=== PATIENT | female | born 1975 | race African-American/Black ===

== ENCOUNTER 2021-10-23 17:19 | Emergency (ER) | payer MEDICAID, SELFPAY ==
[~2021-10-23] VITALS: Ht 167.6 cm; Wt 81.6 kg
--- NOTE | 2021-10-23 17:20 | NUR ---
Patient to ER bed TENT1 to gown for evaluation. Side rails up.
--- NOTE | 2021-10-23 17:25 | NUR ---
ER at bedside examining patient.
--- NOTE | 2021-10-23 17:30 | NUR ---
PT PRESENTS TO ED C/O COUGH AND CONGESTION. PT REPORTS PRODUCTIVE COUGH AND BODY ACHES. NO ACUTE RESP DISTRESS NOTED.
[2021-10-23] MEDS ORDERED: PROMETHAZINE HCL 25 MG TABLET PO ONE (18:00)
[2021-10-23] MEDS ORDERED: ALBUTEROL MDI INHALATION 8 GM INH INH ONE (18:00)
[2021-10-23] MEDS ORDERED: ACETAMINOPHEN 325 MG TABLET PO ONE (18:00)
--- NOTE | 2021-10-23 18:30 | NUR ---
PT TOLERATED MEDICATION WELL.
--- NOTE | 2021-10-23 18:45 | NUR ---
PT RECEIVING BREATHING TX.
[2021-10-23] MEDS ORDERED: IPRATROPIUM/ALBUTEROL SULFATE 3 ML AMPUL.NEB (DUONEB) INH ONE (19:00)
--- NOTE | 2021-10-23 19:09 | NUR ---
Assumed care of patient at change of shift. Introduced self to patient, positioned for comfort. Bed to low position sr up, continue to monitor. Patient resting quietly. No acute distress noted. Vital signs within normal range. Addendum: 10/23/21 at 1910 by [email or web address] RT at bedside for admin of breathing txt. Now c/o sinus headache. continue to monitor.
[2021-10-23 19:28] VITALS: BP_SYST 140
[2021-10-23] MEDS ORDERED: PHEDM120 PO (19:28)
[2021-10-23] MEDS ORDERED: PRED20TA PO (19:28)
[2021-10-23] MEDS ORDERED: ALBMDI INH (19:28)
[2021-10-23] MEDS ORDERED: IBUPROFEN 800 MG TABLET PO ONE (19:45)
[2021-10-23] MEDS ORDERED: GUAI-723 PO (19:49)
--- NOTE | 2021-10-23 20:04 | NUR ---
Patient given written and verbal discharge instructions and verbalizes understanding. ER MD discussed with patient the results and treatment provided. Patient in stable condition. ID arm band removed. Rx of prednisone, given. Patient educated on pain management and to follow up with PMD. Pain Scale 6. Opportunity for questions provided and answered. Medication side effect fact sheet provided.
== END 2021-10-23 20:04 | disposition home or self-care (01) ==
LOC: SED 17:19
DX: J45.901 Unspecified asthma with (acute) exacerbation (principal); J06.9 Acute upper respiratory infection, unspecified; R51.9 Headache, unspecified; Z79.899 Other long term (current) drug therapy; Z20.822 Contact with and (suspected) exposure to COVID-19
CPT/HCPCS: 71045; 86710; 87426; 94640; 99284; Q0169; 36415

== ENCOUNTER 2021-11-13 09:43 | Emergency (ER) | payer MEDICAID, SELFPAY ==
[~2021-11-13] VITALS: Ht 175.3 cm; Wt 70.8 kg
[~2021-11-13 09:43] MED LIST: ALBMDI INH; GUAI-723 PO; PHEDM120 PO; PRED20TA PO
--- NOTE | 2021-11-13 09:50 | NUR ---
Pt triaged and placed in waiting room.
[2021-11-13 09:56] VITALS: BP_SYST 137
--- NOTE | 2021-11-13 10:30 | NUR ---
Patient to ER bed 2 to gown for evaluation. Side rails up. Report given to SAI Delcid.
--- NOTE | 2021-11-13 10:33 | NUR ---
DR DAWSON AT BEDSIDE FOR EXAM
--- NOTE | 2021-11-13 10:38 | NUR ---
LAB AT BEDSIDE
[2021-11-13 10:51] LABS: BASOPHILS % (AUTO) 0.3 % (0.0-2.0); EOSINOPHILS # (AUTO) 0.2 K/uL (0.0-0.4); EOSINOPHILS % (AUTO) 2.1 % (0.0-4.0); HEMATOCRIT 40.1 % (36-48); HEMOGLOBIN 13.2 g/dL (12.0-16.0); LYMPHOCYTES # (AUTO) 2.5 K/uL (1.0-5.5); LYMPHOCYTES % (AUTO) 25.9 % (20.5-51.5); MEAN CORPUSCULAR HEMOGLOBIN 29 pg (27-31); MEAN CORPUSCULAR HGB CONC 33 % (32-36); MEAN CORPUSCULAR VOLUME 87 fL (79.0-98.0); MONOCYTES # (AUTO) 0.7 K/uL (0.0-1.0); MONOCYTES % (AUTO) 7.8 % (1.7-9.3); NEUTROPHILS # (AUTO) 6.1 K/uL (1.8-7.7); NEUTROPHILS % (AUTO) 63.9 % (40.0-70.0); PLATELET COUNT (AUTO) 330 K/uL (130-430); RED CELL DISTRIBUTION WIDTH 15.4 % (9.0-15.0); WHITE BLOOD COUNT (AUTO) 9.5 K/uL (4.8-10.8)
[2021-11-13 10:57] LABS: CALCIUM 7.9 mg/dL (8.4-11.0); CREATININE 0.73 mg/dL (0.55-1.30); POTASSIUM 4.3 mmol/L (3.5-5.1)
[2021-11-13 11:00] LABS: INR 0.9 (0.8-1.2); PROTHROMBIN TIME 9.7 SECS (9.5-12.5)
[2021-11-13 11:03] LABS: ALBUMIN 3.8 g/dL (3.4-4.8); C-REACTIVE PROTEIN QUANT 1.2 mg/dL (0-0.5); TOTAL BILIRUBIN 0.1 mg/dL (0.0-1.0); URIC ACID 6.3 mg/dL (2.4-7.0)
--- NOTE | 2021-11-13 11:04 | NUR ---
46yr old f pt here dropped off by warehouse coordinator from sober living. 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 PT is alert and oriented to time, place and name. Pt complains of Left knee pain. States tight, sharp and sticking pain behind the knee started 1 week ago. rates pain 8/10. denies any chest pain. no shortness of breathe noted. Left leg is cool to touch and swollen. Left pedal pushes is weak, cant turn to the right/left. Left cap refill is more than 3 secs. Taking aleve for pain control, last takenlast night with nom relief. Note enetered by Alycia Arias RN student Checked by Farhana Seth RN.
[2021-11-13] MEDS ORDERED: IBUP-1969 PO (11:48)
[2021-11-13] MEDS ORDERED: HYDR-3917 PO (11:48)
--- NOTE | 2021-11-13 12:03 | NUR ---
Patient given written and verbal discharge instructions and verbalizes understanding. ER MD discussed with patient the results and treatment provided. Patient in stable condition. ID arm band removed. Rx of norco, ibuprfoen given. Patient educated on pain management and to follow up with PMD. Pain Scale . Opportunity for questions provided and answered. Medication side effect fact sheet provided.
[2021-11-13 12:04] VITALS: BP_SYST 129
[2021-11-13 12:12] LABS: ERYTHROCYTE SEDIMENTATION RATE 21 MM/HR (0-20)
== END 2021-11-13 12:04 | disposition home or self-care (01) ==
LOC: SED 09:43
DX: M17.12 Unilateral primary osteoarthritis, left knee (principal); J45.909 Unspecified asthma, uncomplicated; Z79.899 Other long term (current) drug therapy
CPT/HCPCS: 36415; 73560-TC; 80053; 84550; 84703; 85025; 85610-TC; 85651-TC; 85730-TC; 86140; 99284

== ENCOUNTER 2022-01-05 09:39 | Emergency (ER) | payer MEDICAID, SELFPAY ==
[~2022-01-05] VITALS: Ht 175.3 cm; Wt 70.8 kg
[~2022-01-05 09:39] MED LIST changes: +HYDR-3917 PO; +IBUP-1969 PO
[2022-01-05 10:42] VITALS: BP_SYST 150
[2022-01-05] MEDS ORDERED: ACETAMINOPHEN 500 MG TABLET PO ONE (11:15)
[2022-01-05] MEDS ORDERED: IBUPROFEN 600 MG TABLET PO ONE (11:15)
[2022-01-05] MEDS ORDERED: ACET-2634 PO (14:11)
[2022-01-05 14:26] VITALS: BP_SYST 142
== END 2022-01-05 14:26 | disposition home or self-care (01) ==
LOC: SED 09:39
DX: N63.0 Unspecified lump in unspecified breast (principal); N64.4 Mastodynia; J45.909 Unspecified asthma, uncomplicated
CPT/HCPCS: 76642; 99283; 99284

== ENCOUNTER 2022-03-22 10:32 | Emergency (ER) | payer MEDICAID ==
[~2022-03-22] VITALS: Ht 175.3 cm; Wt 117.9 kg
[2022-03-22 10:32] VITALS: BP_SYST 131
[~2022-03-22 10:32] MED LIST changes: +ACET-2634 PO
--- NOTE | 2022-03-22 10:37 | NUR ---
TRIAGED AND BROUGHT BACK TO BED #7, REPORT GIVEN TO CHINYERE
--- NOTE | 2022-03-22 10:42 | NUR ---
Pt to bed #7 coming from home ambulatory with steady gait. Pt is A&Ox4. Skin intact. Pt c/o body aches, productive cough, fatigue, mid back pain 7/10 non-radiaiting constant, and sob that started one week ago. NKA. Has hx of Asthma. LMP was February 03, 2022. No chest pain and no n/v. Bed in lowest position. Connected to monitor technician and VSS.
--- NOTE | 2022-03-22 10:47 | NUR ---
ER at bedside examining patient.
[2022-03-22] MEDS ORDERED: predniSONE 20 MG TABLET PO ONE (11:00)
[2022-03-22] MEDS ORDERED: IPRATROPIUM/ALBUTEROL SULFATE 3 ML AMPUL.NEB (DUONEB) INH ONE (11:00)
--- NOTE | 2022-03-22 11:02 | NUR ---
RT at bedside providing breathing tx.
--- NOTE | 2022-03-22 11:05 | NUR ---
Urine specimen collected for testing. Results negative , notified Radiology.
--- NOTE | 2022-03-22 11:07 | NUR ---
technical services specialist at bs
[2022-03-22] MEDS ORDERED: LEVOFLOXACIN IN DEXTROSE 5 % 100 ML IV ONE (11:30)
[2022-03-22] MEDS ORDERED: METHYLPREDNISOLONE SOD SUCC 40 MG/ML VIAL IVP ONE (11:30)
[2022-03-22] MEDS ORDERED: cefTRIAXone 1 GM IVPB PREMIX 50 ML IV ONE (11:30)
[2022-03-22] MEDS ORDERED: NACL 0.9% 1,000 ML IV ONE (11:30)
--- NOTE | 2022-03-22 11:40 | NUR ---
RT at bedside doing ABG's.
--- NOTE | 2022-03-22 11:40 | NUR ---
# 20 gauge angiocath placed to left hand. Use of asceptic technique. Opsite placed over site. Blood return noted. Blood for lab drawn from site. Flushed with 10 cc of normal saline. No evidence of infiltration noted. Patient tolerated well.
--- NOTE | 2022-03-22 11:49 | NUR ---
Ceftriaxone initiated 1gm running at 100ml an hour as well as NS 0.9% 1L running at 999ml/hr. Pt has no c/o. VSS.
[2022-03-22 12:05] LABS: ANION GAP 10 (5-15); CHLORIDE 102 mmol/L (98-107); CREATININE 0.75 mg/dL (0.55-1.30); GLUCOSE 92 mg/dL (70-99); POTASSIUM 4.2 mmol/L (3.5-5.1); SODIUM SERUM 138 mmol/L (136-145); UREA NITROGEN, BLOOD 15 mg/dL (8-21)
[2022-03-22 12:06] LABS: GFR AFRICAN AMERICAN 107 mL/min (>90)
--- NOTE | 2022-03-22 12:09 | NUR ---
Ceftriaxone completed. Levaquin 500mg/D5 2 100ml initiated running at 100ml/hr. Also Solu-Medrol given 125mg IV puch. Pt has no c/o. VSS.
[2022-03-22 12:11] LABS: ALANINE AMINOTRANSFERASE 20 U/L (12-78); ALBUMIN 3.7 g/dL (3.4-4.8); ASPARTATE AMINOTRANSFERASE 15 U/L (10-37)
[2022-03-22 12:12] LABS: TOTAL BILIRUBIN < 0.1 mg/dL (0.0-1.0)
[2022-03-22 12:15] LABS: BASOPHILS # (AUTO) 0.1 K/uL (0.0-0.2); BASOPHILS % (AUTO) 0.7 % (0.0-2.0); EOSINOPHILS # (AUTO) 0.1 K/uL (0.0-0.4); EOSINOPHILS % (AUTO) 0.4 % (0.0-4.0); HEMATOCRIT 42.4 % (36-48); HEMOGLOBIN 13.6 g/dL (12.0-16.0); LYMPHOCYTES # (AUTO) 3.5 K/uL (1.0-5.5); LYMPHOCYTES % (AUTO) 19.2 % (20.5-51.5); MEAN CORPUSCULAR HEMOGLOBIN 29 pg (27-31); MEAN CORPUSCULAR HGB CONC 32 % (32-36); MEAN CORPUSCULAR VOLUME 89 fL (79.0-98.0); MONOCYTES # (AUTO) 1.1 K/uL (0.0-1.0); NEUTROPHILS # (AUTO) 13.3 K/uL (1.8-7.7); NEUTROPHILS % (AUTO) 73.7 % (40.0-70.0); PLATELET COUNT (AUTO) 353 K/uL (130-430); RED BLOOD CELL COUNT(AUTO) 4.77 MIL/uL (4.2-6.2); RED CELL DISTRIBUTION WIDTH 16.4 % (9.0-15.0); WHITE BLOOD COUNT (AUTO) 18.1 K/uL (4.8-10.8)
[2022-03-22] MEDS ORDERED: MIRT-115 PO (13:00)
[2022-03-22] MEDS ORDERED: BENZ1TAB8 PO (13:00)
[2022-03-22] MEDS ORDERED: OLAN10TA3 PO (13:00)
[2022-03-22] MEDS ORDERED: ARIP20TA4 PO (13:00)
--- NOTE | 2022-03-22 13:01 | NUR ---
Pt resting at this time, no s/s of distress, VSS.
[2022-03-22] MEDS ORDERED: ALBMDI INH (13:39)
[2022-03-22] MEDS ORDERED: PRED20TA PO (13:39)
[2022-03-22] MEDS ORDERED: AUG875 PO (13:39)
[2022-03-22] MEDS ORDERED: AZIT500T3 PO (13:39)
[2022-03-22 13:45] VITALS: BP_SYST 132
--- NOTE | 2022-03-22 13:50 | NUR ---
Patient given written and verbal discharge instructions and verbalizes understanding. ER MD discussed with patient the results and treatment provided. Patient in stable condition. ID arm band removed. Rx of Ventolin,Augmentin, Zithromax, Prednisone given. Patient educated on pain management and to follow up with PMD. Pain Scale 0/10. Opportunity for questions provided and answered. Medication side effect fact sheet provided.
== END 2022-03-22 13:50 | disposition home or self-care (01) ==
LOC: SED 10:32
DX: J45.901 Unspecified asthma with (acute) exacerbation (principal); Z20.822 Contact with and (suspected) exposure to COVID-19
CPT/HCPCS: 36415; 36600; 71045; 80053; 81025; 82803; 83605; 85025; 87040; 87426; 94640; 96365; 96375; 99285; J0696; J1030; J1956; J7030; J7512; 96361

== ENCOUNTER 2022-04-06 19:40 | Emergency (ER) | payer MEDICAID ==
[~2022-04-06] VITALS: Ht 175.3 cm; Wt 113.4 kg
[~2022-04-06 19:40] MED LIST changes: +ARIP20TA4 PO; +AUG875 PO; +AZIT500T3 PO; +BENZ1TAB8 PO; -GUAI-723 PO; -HYDR-3917 PO; +MIRT-115 PO; +OLAN10TA3 PO; -PHEDM120 PO
[2022-04-06 19:42] VITALS: BP_SYST 123
--- NOTE | 2022-04-06 20:03 | NUR ---
Patient left without being seen.
== END 2022-04-06 20:03 | disposition left against medical advice (07) ==
LOC: SED 19:40
DX: R06.02 Shortness of breath (principal); Z53.21 Procedure and treatment not carried out due to patient leaving prior to being seen by health care provider

== ENCOUNTER 2022-06-13 20:43 | Emergency (ER) | payer MEDICAID ==
[~2022-06-13] VITALS: Ht 175.3 cm; Wt 68.0 kg
[2022-06-13 21:03] VITALS: BP_SYST 132
--- NOTE | 2022-06-13 22:16 | NUR ---
[facility] Side rails up. Report given to SAI Cannon
--- NOTE | 2022-06-13 22:37 | NUR ---
pt to ER w/ c/o bilateral knee pain w/ worse pain 7/10 to right medial knee. Pt ambulates with steady gait. Pt answers questions slowly. Pt denies any falls or trauma.
--- NOTE | 2022-06-14 00:31 | NUR ---
Pt sleeping at this time w/ no signs of acute distress. Respirations even and unlabored. Pt self-turns. Normal skin color for ethnicity. Side rails up. Bed in low position.
--- NOTE | 2022-06-14 01:18 | NUR ---
Patient given written and verbal discharge instructions and verbalizes understanding. ER MD discussed with patient the results and treatment provided. Patient in stable condition. ID arm band removed. Patient educated on pain management and to follow up with PMD. Pain Scale 0/10. Opportunity for questions provided and answered. Medication side effect fact sheet provided. Pt ambulates independently with strong, steady gait.
[2022-06-14 01:19] VITALS: BP_SYST 140
== END 2022-06-14 01:19 | disposition home or self-care (01) ==
LOC: SED 20:43
DX: M25.561 Pain in right knee (principal); J45.909 Unspecified asthma, uncomplicated; Z79.899 Other long term (current) drug therapy
CPT/HCPCS: 99281

== ENCOUNTER 2022-10-11 20:17 | Emergency (ER) | payer MEDICAID ==
[~2022-10-11] VITALS: Ht 176.5 cm; Wt 83.9 kg
[2022-10-11 21:04] VITALS: BP_SYST 163
[2022-10-11] MEDS ORDERED: IBUP-1969 PO (21:39)
[2022-10-11] MEDS ORDERED: HYDR-3917 PO (21:39)
[2022-10-11 21:56] VITALS: BP_SYST 151
== END 2022-10-11 21:55 | disposition home or self-care (01) ==
LOC: SED 20:17
DX: S60.221A Contusion of right hand, initial encounter (principal); J45.909 Unspecified asthma, uncomplicated; Z79.899 Other long term (current) drug therapy; W22.09XA Striking against other stationary object, initial encounter; Y93.89 Activity, other specified; Y92.89 Other specified places as the place of occurrence of the external cause; Y99.8 Other external cause status
CPT/HCPCS: 36415; 86592; 99284

== ENCOUNTER 2023-01-31 22:52 | Emergency (ER) | payer MEDICAID ==
[~2023-01-31] VITALS: Ht 177.8 cm; Wt 57.2 kg
[~2023-01-31 22:52] MED LIST changes: -AUG875 PO; -AZIT500T3 PO; -BENZ1TAB8 PO; +BENZ1TAB82 PO; +HYDR-3917 PO
[2023-02-01 00:18] VITALS: BP_SYST 157
--- NOTE | 2023-02-01 00:24 | NUR ---
Patient triaged and placed in waiting room. VSS and patient appears in no acute distress at this time. Accompanied by SELF, awaiting available bed, and MD notified of need for MSE.
[2023-02-01] MEDS ORDERED: LISINOPRIL 10 MG TABLET (PRINIVIL) PO ONE (00:30)
--- NOTE | 2023-02-01 01:28 | NUR ---
47yo F here for headache x 1 day. Admits to 9/10 frontal headache pain.
--- NOTE | 2023-02-01 01:30 | NUR ---
Dr West at bedside
[2023-02-01 01:34] LABS: BILIRUBIN,URINE NEGATIVE (NEGATIVE); BLOOD, URINE NEGATIVE (NEGATIVE); COLOR,URINE YELLOW (YELLOW); GLUCOSE,URINE NEGATIVE (NEGATIVE); KETONES,URINE NEGATIVE (NEGATIVE); LEUKOCYTE ESTERASE ,URINE TRACE (NEGATIVE); NITRITE, URINE NEGATIVE (NEGATIVE); PH,URINE 6.5 (5.0-8.0); PROTEIN URINE NEGATIVE (NEGATIVE); UROBILINOGEN,URINE 0.2 (0.2-1.0)
[2023-02-01 02:16] LABS: BASOPHILS # (AUTO) 0.1 K/uL (0.0-0.2); BASOPHILS % (AUTO) 0.7 % (0.0-2.0); EOSINOPHILS # (AUTO) 0.1 K/uL (0.0-0.4); EOSINOPHILS % (AUTO) 1.8 % (0.0-4.0); HEMATOCRIT 31.6 % (36-48); HEMOGLOBIN 10.4 g/dL (12.0-16.0); LYMPHOCYTES # (AUTO) 2.1 K/uL (1.0-5.5); LYMPHOCYTES % (AUTO) 27.5 % (20.5-51.5); MEAN CORPUSCULAR HEMOGLOBIN 29 pg (27-31); MEAN CORPUSCULAR HGB CONC 33 % (32-36); MEAN CORPUSCULAR VOLUME 87 fL (79.0-98.0); MONOCYTES # (AUTO) 0.6 K/uL (0.0-1.0); MONOCYTES % (AUTO) 7.9 % (1.7-9.3); NEUTROPHILS # (AUTO) 4.7 K/uL (1.8-7.7); NEUTROPHILS % (AUTO) 62.1 % (40.0-70.0); PLATELET COUNT (AUTO) 408 K/uL (130-430); RED BLOOD CELL COUNT(AUTO) 3.63 MIL/uL (4.2-6.2); RED CELL DISTRIBUTION WIDTH 16.4 % (9.0-15.0); WHITE BLOOD COUNT (AUTO) 7.6 K/uL (4.8-10.8)
[2023-02-01 02:22] LABS: CLARITY/URINE HAZY (CLEAR)
[2023-02-01 02:24] LABS: CALCIUM 8.4 mg/dL (8.4-11.0); CREATININE 0.84 mg/dL (0.55-1.30)
[2023-02-01 02:38] LABS: ALBUMIN 3.1 g/dL (3.4-4.8); TOTAL BILIRUBIN 0.2 mg/dL (0.0-1.0)
[2023-02-01 02:54] LABS: BACTERIA,URINE None Seen /HPF (None Seen); RBC,URINE 0-3 /HPF (0-3); WBC,URINE 0-3 /HPF (0-3)
[2023-02-01] MEDS ORDERED: LISI20TA30 PO (04:14)
--- NOTE | 2023-02-01 04:30 | NUR ---
Sleeping at this time. Respiration even and unlabored. no distress
--- NOTE | 2023-02-01 06:37 | NUR ---
Patient given written and verbal discharge instructions and verbalizes understanding. ER MD discussed with patient the results and treatment provided. Patient in stable condition. ID arm band removed. Rx of Lisinopril given. Patient educated on pain management and to follow up with PMD. Pain Scale 0. Opportunity for questions provided and answered. Medication side effect fact sheet provided. Ambulated out of ED c steady gait
[2023-02-01 06:38] VITALS: BP_SYST 149
--- NOTE | 2023-02-01 12:39 | NUR ---
Email sent to Kevin Sheriff requesting that a code change be made, as the patient is not homeless.
== END 2023-02-01 06:37 | disposition home or self-care (01) ==
LOC: SED 22:52
DX: R51.9 Headache, unspecified (principal); I10 Essential (primary) hypertension; J45.909 Unspecified asthma, uncomplicated; Z79.899 Other long term (current) drug therapy
CPT/HCPCS: 36415; 80053; 81000; 85025; 99285

== ENCOUNTER 2023-06-12 08:57 | Emergency (ER) | payer MEDICAID ==
[~2023-06-12] VITALS: Ht 157.5 cm; Wt 61.2 kg
[~2023-06-12 08:57] MED LIST changes: +LISI20TA30 PO
[2023-06-12 09:05] VITALS: BP_SYST 141; PULSE 100; RESP 18; TEMP 98.3; O2SAT 98
--- NOTE | 2023-06-12 09:05 | NUR ---
Patient to ER bed 08 to gown for evaluation. Side rails up.
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
[2023-06-12] MEDS ORDERED: KETOROLAC TROMETHAMINE 30 MG VIAL IM ONE (10:30)
--- NOTE | 2023-06-12 11:40 | NUR ---
Received report from Farhana & accepted transfer of care for Patient.
--- NOTE | 2023-06-12 11:45 | NUR ---
Introduced self to Patient & explained change in nursing assignment. Patient states following pain medication administered by previous nurse she is not "out of my mind in pain anymore" but was unable to give a pain scale. Using Blanco Stafford faces, rated 7/10. Patient requesting something to eat, stated this not a problem. Ordered a sandwich box from [employer].
--- NOTE | 2023-06-12 11:47 | NUR ---
PT WITHE EYES CLOSED, IN NAD. RESP EVEN AND UNLABORED, ON RA @97%.DENIES ANY CP OR SOB AT THIS TIME.
[2023-06-12] MEDS ORDERED: SULF1TAB48 PO (11:52)
[2023-06-12] MEDS ORDERED: IBUP-1971 PO (11:52)
[2023-06-12 12:30] VITALS: BP_SYST 132; PULSE 92; RESP 19; TEMP 98.4; O2SAT 97
--- NOTE | 2023-06-12 12:30 | NUR ---
Patient given written and verbal discharge instructions and verbalizes understanding. ER MD discussed with patient the results and treatment provided. Patient in stable condition. ID arm band removed. Rx of IBUPROFEN, BACTRIM given. Patient educated on pain management and to follow up with PMD. Pain Scale 7/10. Opportunity for questions provided and answered. Medication side effect fact sheet provided. Patient was helped into an [employer] which was arranged by her sober assisted living executive director. Seatbelt was applied.
== END 2023-06-12 12:30 | disposition home or self-care (01) ==
LOC: SED 08:57
DX: L03.113 Cellulitis of right upper limb (principal); M19.011 Primary osteoarthritis, right shoulder; M79.601 Pain in right arm; J45.909 Unspecified asthma, uncomplicated; Z79.899 Other long term (current) drug therapy
CPT/HCPCS: 99284; 73030; 73060; 96372; J1885